=== PATIENT | male | born 1970 | race Caucasian/White ===

== ENCOUNTER 2024-12-13 03:11 | Outpatient (CLI) | payer MEDICAID, SELFPAY ==
--- NOTE | 2024-12-13 06:30 | DI.RAD_ITS ---
Exam(s) XR FOOT LT COMPLETE XR FOOT RT COMPLETE EXAM: XR FOOT LT COMPLETE CLINICAL HISTORY: Bilateral foot pain,LT M79.672. TECHNIQUE: 2D digital imaging was performed. Three views of both feet. COMPARISON: CR XR FOOT RT COMPLETE from 12/13/2024 FINDINGS: BONES: No acute fracture is present. No bony destructive lesion is seen. Small bilateral enthesophytes at the Achilles insertion. JOINTS: No dislocation present. Mild degenerative changes of both 1st MTP joint. No hallux valgus. Plantar arches are maintained bilaterally. SOFT TISSUE: Normal. 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 DATA REPOSITORY: RADIATION DOSE DELIVERED:
== END 2024-12-13 03:31 ==
PROVIDERS: Visit Provider Podiatrist
DX: M19.071 Primary osteoarthritis, right ankle and foot; M19.072 Primary osteoarthritis, left ankle and foot
CPT/HCPCS: 73630